=== PATIENT | female | born 1955 | race Caucasian/White ===

== ENCOUNTER 2019-07-19 05:27 | Day surgery (SDC) | payer OTHER ==
[~2019-07-19 05:27] MED LIST: EVISTA60 MG; GABAPENTIN100 MG; JANUMET 50-1,01 EACH PO; JANUVIA50 MG; JARDIANCE25 MG; LANTUS SOL100 UNIT/1; LISINOPRIL10 MG; NOVOLOG100 UNIT/1 SUBCUTANEO; PROTONIX40 M1; SIMVASTATIN40 MG
[2019-07-19] MEDS ORDERED: MORGIDOX100 MG PO (10:05)
[2019-07-19] MEDS ORDERED: Tylenol #3 PO (10:05)
== END 2019-07-19 14:15 | disposition home or self-care (01) ==
LOC: CIR.AMB 05:27
DX: N84.0 Polyp of corpus uteri (principal); D25.0 Submucous leiomyoma of uterus